=== PATIENT | male | born 1980 | race Caucasian/White ===

== ENCOUNTER 2018-08-18 21:05 | Emergency (ER) | payer BC ==
[~2018-08-18] VITALS: Ht 195.6 cm; Wt 147.4 kg
[2018-08-18] MEDS ORDERED: MEDROLDOSEPACK PO (22:21)
[2018-08-18 22:30] VITALS: BP 160/88
== END 2018-08-18 22:30 | disposition home or self-care (01) ==
LOC: M.ERS 21:05
DX: J40 Bronchitis, not specified as acute or chronic (principal); Z88.1 Allergy status to other antibiotic agents; Z91.040 Latex allergy status